=== PATIENT | female | born 1975 | race Caucasian/White ===

== ENCOUNTER 2018-02-04 12:09 | Emergency (ER) | payer OTHER, BC ==
[~2018-02-04] VITALS: Ht 172.7 cm; Wt 83.9 kg
[2018-02-04 12:33] VITALS: BP 136/85
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
[2018-02-04] MEDS ORDERED: CYCL10TA2 PO (14:15)
[2018-02-04] MEDS ORDERED: DICL50TA4 PO (14:15)
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
== END 2018-02-04 14:30 | disposition home or self-care (01) ==
LOC: ER 12:09 → EDBD 12:09 → ER 14:30
DX: S46.811A Strain of other muscles, fascia and tendons at shoulder and upper arm level, right arm, initial encounter (principal); S16.1XXA Strain of muscle, fascia and tendon at neck level, initial encounter; H53.8 Other visual disturbances; E11.9 Type 2 diabetes mellitus without complications; Z90.89 Acquired absence of other organs; V43.52XA Car driver injured in collision with other type car in traffic accident, initial encounter; Y93.89 Activity, other specified; Y92.410 Unspecified street and highway as the place of occurrence of the external cause; Y99.8 Other external cause status
CPT/HCPCS: 70480; 72125; 73030; 99284